=== PATIENT | male | born 2000 | race Caucasian/White ===

== ENCOUNTER 2023-03-14 14:52 | Emergency (ER) | payer OTHER ==
[2023-03-14] MEDS ORDERED: Bacitracin 1 PK ONE (15:57)
== END 2023-03-14 15:53 | disposition home or self-care (01) ==
LOC: CSHERS 14:52
DX: S61.412A Laceration without foreign body of left hand, initial encounter (principal); W31.89XA Contact with other specified machinery, initial encounter
CPT/HCPCS: 12002; 99282